=== PATIENT | male | born 1960 | race Caucasian/White ===

== ENCOUNTER 2020-10-19 06:08 | Emergency (ER) | payer OTHER ==
[~2020-10-19] VITALS: Ht 172.7 cm; Wt 117.9 kg
[2020-10-19] MEDS ORDERED: PROPECIA1 MG PO (06:19)
== END 2020-10-19 13:42 | disposition home or self-care (01) ==
LOC: ER 06:08
DX: N39.0 Urinary tract infection, site not specified (principal); R10.2 Pelvic and perineal pain